=== PATIENT | male | born 1955 | race Caucasian/White ===

== ENCOUNTER 2017-06-28 10:40 | Emergency (ER) | payer BC ==
--- NOTE | 2017-06-28 11:56 | EDM.PDOC ---
ED HPI GENERAL MEDICAL PROBLEM - General Chief Complaint: Respiratory Problem Stated Complaint: POSSIBLE CHEST PAIN Time Seen by Provider: 06/28/17 11:49 Source of Information: Reports: Patient History Limitations: Reports: No Limitations - History of Present Illness INITIAL COMMENTS - FREE TEXT/NARRATIVE: c/o sob and palpitations pt does factory work, he used up a vacation day 2d ago, did some light chores around the house, at 1p he lay down for a nap as he usually does, he awoke after 1h and had sob and racing heart, he got his BP monitor which showed BP 168 /95 and then forgot to look at the HR, he waited a short while and took it again and had BP 130/90 with HR 63 he did not have additional palpitations but still had some sob, worked yesterday , home today (Sat), felt sob on awakening, went outside for fresh air and was still sob, comes to ED, no sob now with PO 99%, says he would have sob has had flu vax, has not, grandchildren live elsewhere no f/c/d has MARGARITA, uses CPAP map at night no prior [place], cardiac cath 10y ago showed arteries "were wide open" h/o asthma, uses Symbicort daily h/o "racing heart", on verapamil x 25y - Related Data Allergies Allergy/AdvReac Type Severity Reaction Status Date / Time No Known Allergies Allergy Verified 06/28/17 11:36 Home Meds: Home Meds Budesonide/Formoterol Fumarate [Symbicort 80-4.5 Mcg Inhaler] 06/28/17 [History ] Glucosamine Sulfate 1,000 mg PO DAILY 06/28/17 [History] Lisinopril [Lisinopril] 20 mg PO DAILY 06/28/17 [History] Multivits,Ca,Minerals/Iron/FA [Therapeutic-M Caplet] 2 each PO DAILY 06/28/17 [ History] Tamsulosin [Tamsulosin 24 Hr] 0.4 mg PO DAILY 06/28/17 [History] Triamterene/Hydrochlorothiazid [Triamterene-HCTZ 75-50 MG] 0.5 tab PO DAILY [History] Verapamil [Calan SR] 240 mg PO DAILY 06/28/17 [History] Vitamin E 100 unit PO DAILY 03/17/18 [History] predniSONE 20 mg PO DAILY #7 tab 06/28/17 [Rx] ED ROS GENERAL - Review of Systems Review Of Systems: See Below Constitutional: Reports: No Symptoms HEENT: Reports: No Symptoms Respiratory: Reports: Shortness of Breath Cardiovascular: Reports: No Symptoms. Denies: Chest Pain Endocrine: Reports: No Symptoms GI/Abdominal: Reports: No Symptoms : Reports: No Symptoms Musculoskeletal: Reports: No Symptoms Skin: Reports: No Symptoms Neurological: Reports: No Symptoms Psychiatric: Reports: No Symptoms Hematologic/Lymphatic: Reports: No Symptoms Immunologic: Reports: No Symptoms ED EXAM, GENERAL - Physical Exam Exam: See Below Exam Limited By: No Limitations General Appearance: Alert, WD/WN, No Apparent Distress Ears: Normal External Exam Nose: Normal Inspection, Normal Mucosa, No Blood Throat/Mouth: Normal Inspection, Normal Lips, Normal Teeth, Normal Gums, Normal Oropharynx, Normal Voice, No Airway Compromise Head: Atraumatic, Normocephalic Neck: Normal Inspection, Supple, Non-Tender, Full Range of Motion Respiratory/Chest: No Respiratory Distress, Lungs Clear, Normal Breath Sounds, No Accessory Muscle Use, Chest Non-Tender, Other (fair to good AE, no splinting , no wheeze, no dyspnea, no rales) Cardiovascular: Regular Rate, Rhythm, No Edema, No Gallop, No JVD, No Rub, Other (2/6 ROBBY at LSB) Back Exam: Normal Inspection, Full Range of Motion Extremities: Normal Inspection, Normal Range of Motion, Non-Tender, Other (1+ edema to knees b/l, symmetric, calves NT, no cords) Neurological: Alert, Oriented, CN II-XII Intact, Normal Cognition, No Motor/ Sensory Deficits Psychiatric: Normal Affect, Normal Mood Skin Exam: Warm, Dry, Intact, Normal Color, No Rash Lymphatic: No Adenopathy Course - Orders/Labs/Meds Orders: Active Orders 24 hr Category Date Time Status Chest 2V [CR] Stat Exams 06/28/17 11:48 Ordered EKG 12 Lead [EK] Routine Ther 06/28/17 11:48 Ordered Labs: Laboratory Tests 06/28/17 06/28/17 06/28/17 Range/Units 12:10 12:10 12:10 WBC 6.2 (4.5-12.0) X10-3/uL RBC 5.12 (4.30-5.75) x10(6)uL Hgb 14.7 (11.5-15.5) g/dL Hct 45.0 (30.0-51.3) % MCV 87.8 (80-96) fL MCH 28.6 (27.7-33.6) pg MCHC 32.6 (32.2-35.4) g/dL RDW 13.3 (11.5-15.5) % Plt Count 215 (125-369) X10(3)uL MPV 8.1 (7.4-10.4) fL Neut % (Auto) 63.7 (46-82) % Lymph % (Auto) 27.2 (13-37) % [place] % (Auto) 7.0 (4-12) % Eos % (Auto) 1 (1.0-5.0) % Baso % (Auto) 1 (0-2) % Neut # (Auto) 4.0 (1.6-8.3) # Lymph # (Auto) 1.7 (0.6-5.0) # [place] # (Auto) 0.4 (0.0-1.3) # Eos # (Auto) 0.1 (0.0-0.8) # Baso # (Auto) 0.0 (0.0-0.2) # D-Dimer, Quantitative 258 (100-400) ng/mL Sodium 145 (135-145) mmol/L Potassium 4.2 (3.5-5.3) mmol/L Chloride 106 (100-110) mmol/L Carbon Dioxide 31 (21-32) mmol/L BUN 21 H (7-18) mg/dL Creatinine 1.1 (0.70-1.30) mg/dL Est Cr Clr Drug Dosing TNP Estimated GFR (MDRD) > 60 (>60) BUN/Creatinine Ratio 19.1 (9-20) Glucose 88 (80-116) mg/dL Calcium 9.3 (8.6-10.2) mg/dL Total Bilirubin 0.4 (0.1-1.3) mg/dL AST 25 (5-25) IU/L ALT 44 H (12-36) U/L Alkaline Phosphatase 88 (56-112) IU/L Troponin I (<0.017-0.056) ng/mL NT-Pro-B Natriuret Pep (<=125) pg/mL Total Protein 7.2 (6.0-8.0) g/dL Albumin 3.6 (3.2-4.6) g/dL Globulin 3.6 g/dL Albumin/Globulin Ratio 1.0 TSH, Ultra Sensitive (0.36-3.74) IU/mL 06/28/17 Range/Units 12:10 WBC (4.5-12.0) X10-3/uL RBC (4.30-5.75) x10(6)uL Hgb (11.5-15.5) g/dL Hct (30.0-51.3) % MCV (80-96) fL MCH (27.7-33.6) pg MCHC (32.2-35.4) g/dL RDW (11.5-15.5) % Plt Count (125-369) X10(3)uL MPV (7.4-10.4) fL Neut % (Auto) (46-82) % Lymph % (Auto) (13-37) % [place] % (Auto) (4-12) % Eos % (Auto) (1.0-5.0) % Baso % (Auto) (0-2) % Neut # (Auto) (1.6-8.3) # Lymph # (Auto) (0.6-5.0) # [place] # (Auto) (0.0-1.3) # Eos # (Auto) (0.0-0.8) # Baso # (Auto) (0.0-0.2) # D-Dimer, Quantitative (100-400) ng/mL Sodium (135-145) mmol/L Potassium (3.5-5.3) mmol/L Chloride (100-110) mmol/L Carbon Dioxide (21-32) mmol/L BUN (7-18) mg/dL Creatinine (0.70-1.30) mg/dL Est Cr Clr Drug Dosing Estimated GFR (MDRD) (>60) BUN/Creatinine Ratio (9-20) Glucose (80-116) mg/dL Calcium (8.6-10.2) mg/dL Total Bilirubin (0.1-1.3) mg/dL AST (5-25) IU/L ALT (12-36) U/L Alkaline Phosphatase (56-112) IU/L Troponin I < 0.017 L (<0.017-0.056) ng/mL NT-Pro-B Natriuret Pep 17 (<=125) pg/mL Total Protein (6.0-8.0) g/dL Albumin (3.2-4.6) g/dL Globulin g/dL Albumin/Globulin Ratio TSH, Ultra Sensitive 2.97 (0.36-3.74) IU/mL - Re-Assessments/Exams Free Text/Narrative Re-Assessment/Exam: 06/28/17 13:05 CxR neg, EKG neg, labs neg except for slight inc'd BUN, c/w mild prerenal azotemia suspect he had tachycardia, perhaps SVT, on awakening from his nap 2d ago d/t hypoxia from sleeping for 1h without his CPAP mask still with slight exertional dyspnea today, may have mild asthma exacerbation as well, will empirically treat him with prednisone for 5d, pt agrees pt has Symbicort at home which he uses daily, Dr Isidro had recommended BID pt pt only willing to take it daily, pt has not used it today altho will use it when he gets home, pt declined my offer to send in Rx for alb HFA, says he would like to discuss his options with Dr Isidro cannot exclude cardiac asthma despite normal BNP and normal CxR, he may benefit from a low dose diuretic Departure - Departure Time of Disposition: 13:10 Disposition: Home, Self-Care 01 Condition: Good Clinical Impression: Short of breath on exertion, Asthma exacerbation, Elevated BUN - Discharge Information Prescriptions: predniSONE 20 mg PO DAILY #7 tab Referrals: Ricky Isidro MD [Primary Care Provider] - Forms: ED Department Discharge Additional Instructions: Continue the Symbicort inhaler. Add prednisone 20 mg 2 tab today and tomorrow, then 1 tab daily for [address] Isidro in 2-3 days. Return to ED if you are feeling worse. - My Orders Last 24 Hours: My Active Orders 06/28/17 11:48 Chest 2V [CR] Stat EKG 12 Lead [EK] Routine - Assessment/Plan Last 24 Hours: My Active Orders 06/28/17 11:48 Chest 2V [CR] Stat EKG 12 Lead [EK] Routine
--- NOTE | 2017-06-30 15:56 | CR ---
INDICATION: Short of breath, palpitations, question asthma. CHEST: PA and two lateral views of the chest were obtained 06/28/2017. No comparisons. The heart is normal in size and shape. The aorta is minimally tortuous. Overlying EKG leads are noted. Findings suggesting the possibility of COPD are noted, with slightly flattened diaphragm leaves and prominent AP diameter with hyperaeration. An active infiltrate or effusion was not identified. Flowing hyperostotic appearing changes are noted anteriorly at the thoracic spine. IMPRESSION: 1. No acute process. 2. Probable COPD. 3. Question minimal ASD aorta. 4. 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 MTDD
== END 2017-06-28 13:19 | disposition home or self-care (01) ==
LOC: FB.ED 10:40
DX: J45.901 Unspecified asthma with (acute) exacerbation (principal); R79.89 Other specified abnormal findings of blood chemistry; G47.33 Obstructive sleep apnea (adult) (pediatric); Z99.89 Dependence on other enabling machines and devices; Z79.899 Other long term (current) drug therapy
CPT/HCPCS: 36415; 71046; 80053; 83880; 84443; 84484; 85025; 85379; 93005; 99285

== ENCOUNTER 2023-11-29 17:03 | Emergency (ER) | payer BC, MEDICARE ==
[2023-11-29] MEDS: Ketorolac 0.5% Ophth Soln 5 ML Bottle EYEBOTH STA (18:03)
[2023-11-29] MEDS ORDERED: Ketorolac 0.5% Ophth Soln 5 ML Bottle EYERT SCH (21:00)
== END 2023-11-29 18:17 | disposition home or self-care (01) ==
LOC: FB.ED 17:03
DX: H57.89 Other specified disorders of eye and adnexa (principal); I10 Essential (primary) hypertension; J45.909 Unspecified asthma, uncomplicated; Z90.49 Acquired absence of other specified parts of digestive tract; Z79.899 Other long term (current) drug therapy
CPT/HCPCS: 99283; A9270